=== PATIENT | female | born 1995 | race Caucasian/White ===

== ENCOUNTER → 2017-11-09 | Outpatient (CLI) | payer OTHER ==
[~2017-11-09] MED LIST: ZOFR4TAB3 PO
== END ==
LOC: HPND 07:54
PROVIDERS: ATTEND Obstetrics & Gynecology
DX: Z36.82 Encounter for antenatal screening for nuchal translucency (principal)
CPT/HCPCS: 76805

== ENCOUNTER 2018-03-18 02:43 | Inpatient (IN) ==
--- NOTE | 2018-03-18 02:52 | ED ---
History of Present Illness Primary Care Physician: UNKNOWN History of Present Illness: CC: leaking of fluid, contractions 22 year-old , IUP at 37.4 care complicated by: gestational HTN The patient presents complaining of the leaking of fluid that started at 1:30 am. She reports she had a large gush of clear fluid and has continued to leak since. She reports she is having mild and irregular contractions. She reports good movement. She denies any vaginal bleeding. She has no other obstetrical complaints at this time. 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: , full term x1, denies STDs PSH: denies FH: HTN, thyroid problems SH: Denies Review of Systems All other systems reviewed negative except as stated in HPI PMFSH - Tobacco History Second Hand Smoke Exposure: No Smoking Status: Never smoker - Alcohol History How Often Do You Have a Drink Containing Alcohol: Never - Substance Use History Substance History: No History of Abuse Medications and Allergies Allergies Allergy/AdvReac Type Severity Reaction Status Date / Time No Known Allergies Allergy Uncoded 02/13/16 09:25 Home Medications Medication Instructions Recorded Confirmed Type prenat.vits,brent,zfv-yagr-ysere 1 tab PO DAILY 03/18/18 03/18/18 History [ Vitamin] Exam Narrative: GENERAL: Well-nourished, well-developed patient. SKIN: Warm and dry. HEAD: Normocephalic and atraumatic. EYES: No scleral icterus. No injection or drainage. ENT: No nasal drainage noted. Mucous membranes pink. Airway patent. NECK: Supple, trachea midline. No JVD. CARDIOVASCULAR: Regular rate and rhythm without murmurs, gallops, or rubs. RESPIRATORY: Breath sounds equal bilaterally. No accessory muscle use. BREASTS: Deferred ABDOMEN/GI: Abdomen soft, non-tender, bowel sounds present, no rebound, no guarding Gravid GENITOURINARY: External Genitalia: intact and normal in appearance. Normal BUS. No cervical or vaginal masses noted. No cervical or vaginal masses noted SVE 3-4/ 60/-2/posterior, Amnisure positive and grossly ROM. FHT's: heart tones are in the 150s. Appropriate EXTREMITIES: No cyanosis or edema. BACK: Nontender without obvious deformity. NEUROLOGICAL/psychiatric: Awake and alert. Motor and sensory grossly within normal limits. Grossly normal muscle strength in all muscle groups. Normal speech. Grossly normal range of motion, normal memory/affect NST report: Indications IUP at 37 weeks, leaking of fluid, contractions heart tones in the 120s with moderate long-term variability, good accelerations, no decelerations noted this reactive NST and category 1 heart rate tracing Follow-up: Continue monitoring Final diagnosis IUP at 37 weeks, PROM/SROM with early labor Assessment and Plan - Plan Assessment/Plan: 1. IUP at 37.4 2. PROM: Patient with grossly ruptured membranes and leaking amniotic fluid. Will admit to Dr. Mata. Dr. Mata notified. 3. wellbeing: Reassuring testing with reactive NST and category 1 heart rate tracing 4. Gestational hypertension: Blood pressure stable today 5. GBS negative Discharge Plan - Physicians Team ED Provider: Yenny Renteria Primary Care Provider: UNKNOWN, - Rxs /Orders / Referrals /Forms Prescriptions: No Action prenat.vits,brent,[id number] [ Vitamin] Tablet 1 tab PO DAILY - Discharge Instructions Print Language: Italian
[2018-03-18] MEDS ORDERED: fentaNYL Citrate Inj 100 MCG/2 ML Ampul IV.PUSH PRN ×2 (04:49)
[2018-03-18] MEDS ORDERED: Sodium Chlor 0.9% Inj 500 ML IV.SIG PRN (04:49)
[2018-03-18] MEDS ORDERED: Sod Chloride 0.9% Inj 1,000 ML IV.CONT PRN (04:49)
[2018-03-18] MEDS ORDERED: Oxytocin 30 Units/500ml Premix 30 UNITS/500 ML BAG IV.SIG ONE (04:49)
[2018-03-18 04:56] LABS: Baso % (Auto) 0.5 % (0.0-2.0); Eos # (Auto) 0.1 th/mm3 (0.0-0.4); Hematocrit 34.8 % (35.0-46.0); Hemoglobin 11.7 gm/dL (11.6-15.3); Lymph # (Auto) 1.7 th/mm3 (1.0-4.8); Mean Corpuscular HGB Conc 33.7 % (32.0-36.0); Mean Corpuscular Hemoglobin 29.2 pg (27.0-34.0); Mean Corpuscular Volume 86.6 fL (80.0-100.0); Mean Platelet Volume 10.6 fL (7.0-11.0); Mono # (Auto) 0.4 th/mm3 (0.0-0.9); Mono % (Auto) 6.7 % (0.0-8.0); Neut # (Auto) 4.1 th/mm3 (1.8-7.7); Neut % (Auto) 64.8 % (16.0-70.0); Platelet Count 191 th/mm3 (150-450); Red Blood Count 4.02 mil/mm3 (4.00-5.30); Red Cell Distribution Width 14.7 % (11.6-17.2); White Blood Count 6.3 th/mm3 (4.0-11.0)
[2018-03-18] MEDS ORDERED: Citric Acid/Sodium Citrate Liq 30 ML UDC PO SCH (05:00)
[2018-03-18 05:15] LABS: Alanine Aminotransferase 12 U/L (10-53); Anion Gap 11 meq/L (5-15); Aspartate Aminotransferase 11 U/L (15-37); Blood Urea Nitrogen 10 mg/dL (7-18); Calcium 8.8 mg/dL (8.5-10.1); Carbon Dioxide 20.5 meq/L (21.0-32.0); Chloride 109 meq/L (98-107); Glomerular Filtration Rate Greater Than 89 mL/min (>89); Glucose,Random 75 mg/dL (74-106); Potassium 3.8 meq/L (3.5-5.1); Sodium 140 meq/L (136-145)
[2018-03-18 05:17] LABS: Albumin 2.7 g/dL (3.4-5.0); Alkaline Phosphatase 137 U/L (45-117); Total Protein 6.4 g/dL (6.4-8.2)
[2018-03-18] MEDS ORDERED: Oxytocin 30 Units/500ml Premix 30 UNITS/500 ML BAG IV.CONT PRN (05:19)
[2018-03-18 05:22] LABS: Bilirubin,Urine Negative (Negative); Clarity,Urine Clear (Clear); Color,Urine Yellow (Yellw/Straw); Glucose,Urine (UA) Negative (Negative); Hyaline Casts,Urine 1 /lpf (0-3); Leukocyte Esterase,Urine Negative (Negative); Mucus,Urine Few /lpf (Occasional); Nitrite,Urine Negative (Negative); Specific Gravity,Urine 1.018 (1.002-1.035); Squamous Epithelial Cell,Urine <1 /hpf (0-5)
[2018-03-18 05:28] LABS: Amphetamine Urine With Conf Neg (Neg); Benzodiazepine Urine With Conf Neg (Neg)
[2018-03-18] MEDS ORDERED: fentaNYL 2MCG-Bupiv 0.125% Epi 150 ML EPIDURAL ONE (08:02)
[2018-03-18] MEDS ORDERED: Lidocaine PF 1% Inj 5 ML Vial ONE (09:28)
[2018-03-18] MEDS ORDERED: fentaNYL Citrate Inj 100 MCG/2 ML Ampul EPIDURAL ONE (11:00)
[2018-03-18] MEDS ORDERED: fentaNYL 2MCG-Bupiv 0.125% Epi 150 ML EPIDURAL PRN (11:00)
[2018-03-18] MEDS ORDERED: Benzocaine 20% Top Spray 60 ML Can TOPICAL PRN (12:06)
[2018-03-18] MEDS ORDERED: Naloxone Inj 0.4 MG/ML Vial IV.PUSH PRN (12:06)
[2018-03-18] MEDS ORDERED: Acetaminophen 325 MG Tablet PO PRN (12:06)
[2018-03-18] MEDS ORDERED: Witch Hazel 50%/Glyderin 12.5% 40 Pad Jar RECTAL PRN (12:06)
[2018-03-18] MEDS ORDERED: Bisacodyl 10 MG Supp RECTAL PRN (12:06)
--- NOTE | 2018-03-18 12:14 | P.OBDELI ---
Weeks Gestation: 33 Patient Started Active Labor: Yes Active Labor Start Date: 03/18/18 Active Labor Start Time: 09:00 Medical Induction of Labor: No Artificial Rupture of Membrane: No Anesthesia: Epidural Episiotomy: none Vaginal Delivery: Normal Presentation: Occiput anterior Nuchal Cord: x1 Delayed Cord Clamping (45 sec): Yes Placenta: Spontaneous delivery, Intact, 3 vessel cord Laceration: 1 deg Repair: Chromic running : Male, Single
[2018-03-18] MEDS ORDERED: Oxytocin 30 Units/500ml Premix 30 UNITS/500 ML BAG IV.CONT SCH (12:15)
--- NOTE | 2018-03-18 12:19 | P.HPOB ---
History of Present Illness Primary Care Physician: UNKNOWN History of Present Illness: 22 yo with SROM at 37 weeks in labor Weeks Gestation:: 37 Para: 1 : 2 - Inpatient Certification I certify that the inpatient services were ordered in accordance with Medicare regulations governing the order. This includes certification that hospital inpatient services are reasonable and necessary and in the case of services not specified as inpatient-only under 42 CFR 419.22(n), that they are appropriately provided as inpatient services in accordance to with the 2-midnight benchmark under 43 CFR 412.3(e) Estimated Total Length of Stay (Days): 3 Plans for Post Hospital Care: Home Review of Systems All other systems reviewed negative except as stated in HPI PMFSH - History History Provided By: Patient - Medical / Surgical Hx Neg / Unobtainable Medical Problems Denied: Yes (vonwillebrands worked up and not clinically relevant) Surgical History: No Previous Surgery - Tobacco History Second Hand Smoke Exposure: No Smoking Status: Never smoker - Alcohol History How Often Do You Have a Drink Containing Alcohol: Never - Substance Use History Substance History: No History of Abuse - Travel History Recent Travel in the [place] Within the Last 8 Weeks: No Recent Travel Out of the Country Within the Last 8 Weeks: No Medications and Allergies Active Medications: Active Medications Acetaminophen (Tylenol) 650 mg PO Q4H PRN PRN Reason: PAIN SCALE 1 TO 2 Al Hydroxide/Mg Hydroxide (Milk Of [place]le Lihenr[place]) 30 ml PO Q12H PRN PRN Reason: Mild Constipation Benzocaine (Americaine 20% [place]) 1 spray TOPICAL Q4H PRN PRN Reason: For Perineum Discomfort Bisacodyl (Dulcolax Supp) 10 mg RECTAL DAILY PRN PRN Reason: SEVERE CONSITIPATION Diphtheria/Pertussis/Tetanus Vacc (Boostrix Vaccine Inj) 0.5 ml IM .ONCE ONE Stop: 03/18/18 16:01 Ephedrine Sulfate (Ephedrine/Ns Syringe) 10 mg IV.PUSH UNSCH PRN PRN Reason: SEE LABEL COMMENTS Stop: 03/19/18 10:39 Oxytocin (Pitocin 30 Units/Ns 500 Ml Premix) 30 units in 500 mls @ 2 mls/hr IV.CONT TITRATE PRN; Protocol PRN Reason: For induction of labor Last Admin: 03/18/18 05:49 Dose: 2 milliunit/min, 2 mls/hr Fentanyl/Bupivacaine/Sodium Chlor (Fentanyl 2 Mcg-Bupiv 0.125% Epi) 150 mls @ 12 mls/hr EPIDURAL UNSCH PRN PRN Reason: for Labor Pain Oxytocin (Pitocin 30 Units/Ns 500 Ml Premix) 30 units in 500 mls @ 100 mls/hr IV.CONT Q5H [facility] Stop: 03/18/18 17:14 Ibuprofen (Motrin) 800 mg PO Q8H PRN PRN Reason: For cramping Lactulose (Lactulose Liq) 30 ml PO DAILY PRN PRN Reason: SEVERE CONSITIPATION Measles/Mumps/Rubella Vaccine Live (M-M-R Ii Vaccine Inj) 0.5 ml SQ .ONCE ONE Stop: 03/18/18 16:01 Miscellaneous Information (Misc Information) 1 each OTHER UNSCH PRN PRN Reason: SEE LABEL COMMENTS Stop: 03/19/18 10:39 Miscellaneous Information (Misc Information) 1 each OTHER UNSCH PRN PRN Reason: SEE LABEL COMMENTS Stop: 03/19/18 10:39 Naloxone HCl (Narcan Inj) 0.1 mg IV.PUSH Q2M PRN PRN Reason: for opiate reversal Ondansetron HCl (Zofran Odt) 4 mg PO Q6H PRN PRN Reason: NAUSEA OR VOMITING Oxycodone/Acetaminophen (Percocet 5/325 Mg) 1 tab PO Q4H PRN PRN Reason: PAIN SCALE 3 TO 5 Oxycodone/Acetaminophen (Percocet 5/325 Mg) 2 tab PO Q4H PRN PRN Reason: PAIN SCALE 6 TO 10 Senna/Docusate Sodium (Josette-Colace) 1 tab PO BID [facility] Sennosides (Senokot) 17.2 mg PO Q12H PRN PRN Reason: Moderate Constipation Sodium Chloride (Ns Flush) 2 ml IV.FLUSH BID [facility] Sodium Chloride (Ns Flush) 2 ml IV.FLUSH PRN PRN PRN Reason: FLUSH AFTER USING IV ACCESS Witch Nat/Glycerin (Tucks Pads) 1 applicatio RECTAL QID PRN PRN Reason: HEMORRHOIDS Zolpidem Tartrate (Ambien) 5 mg PO HS PRN PRN Reason: SLEEP Allergies Allergy/AdvReac Type Severity Reaction Status Date / Time No Known Allergies Allergy Verified 03/18/18 10:38 Home Medications Medication Instructions Recorded Confirmed Type prenat.vits,brent,tam-fnki-[id number] 1 tab PO DAILY 03/18/18 03/18/18 History [ Vitamin] Exam Vital signs: Vital Signs 03/18/18 03:07 03/18/18 03:09 03/18/18 03:10 Temperature 98.6 F Pulse Rate 84 Respiratory Rate 18 Blood Pressure 139/89 03/18/18 03:54 03/18/18 03:58 03/18/18 05:07 Temperature 97.8 F Pulse Rate 86 65 Respiratory Rate 20 16 Blood Pressure 140/93 H 133/76 03/18/18 05:53 03/18/18 06:00 03/18/18 06:30 Temperature Pulse Rate 82 72 74 Respiratory Rate 18 Blood Pressure 112/69 125/80 113/70 03/18/18 06:32 03/18/18 07:01 03/18/18 07:05 Temperature 98.1 F Pulse Rate 68 Respiratory Rate 16 18 Blood Pressure 149/88 H 03/18/18 07:45 03/18/18 08:31 03/18/18 08:45 Temperature 98.0 F Pulse Rate 63 72 Respiratory Rate 18 Blood Pressure 136/85 144/86 H 03/18/18 09:00 03/18/18 09:22 03/18/18 09:49 Temperature Pulse Rate 74 85 83 Respiratory Rate Blood Pressure 145/90 H 140/92 H 148/99 H 03/18/18 09:50 03/18/18 09:55 03/18/18 10:00 Temperature 98.1 F Pulse Rate 84 80 76 Respiratory Rate Blood Pressure 150/80 H 03/18/18 10:05 03/18/18 10:25 03/18/18 10:31 Temperature Pulse Rate 88 81 72 Respiratory Rate Blood Pressure 140/89 145/80 H 03/18/18 10:41 03/18/18 10:55 03/18/18 11:10 Temperature Pulse Rate 73 78 81 Respiratory Rate Blood Pressure 141/76 H 143/75 H 126/78 03/18/18 11:25 03/18/18 12:10 Temperature 98.0 F Pulse Rate 80 83 Respiratory Rate 16 Blood Pressure 141/82 H 168/84 H Intake & Output 03/17/18 03/18/18 03/18/18 18:59 06:59 18:59 Intake Total 1000 / 1000 Balance 1000 / 1000 Weight 104 kg 104 kg Intake: IV 1000 / 1000 LR 1000 mL Inj 1,000 ML @ 125 1000 / 1000 mls/hr IV.CONT .Q8H [facility] Rx#: [id number] Other: Weight On Admission 104 kg - Constitutional no acute distress - Routine HEENT Exam Head: Present: normocephalic - Routine Neck Exam Present: full ROM - Routine Respiratory Exam Present: CTA bilaterally - Routine Cardiovascular Exam Present: RRR - Routine Abdominal Exam Present: soft, normoactive bowel sounds - Routine Extremities Exam Present: full ROM - Routine Skin Exam Present: intact - Routine Neurological Exam Present: alert, oriented X3 - Additional findings Additional findings: cervis 3-4 cm with SROM clear Results - Labs CBC & Chem 7: 03/18/18 03:45 03/18/18 03:45 Labs: Laboratory Results - last 24 hr 03/18/18 03/18/18 03/18/18 03:15 03:15 03:45 WBC 6.3 RBC 4.02 Hgb 11.7 Hct 34.8 L MCV 86.6 MCH 29.2 MCHC 33.7 RDW 14.7 Plt Count 191 MPV 10.6 Neut % (Auto) 64.8 Lymph % (Auto) 27.0 Kaufman % (Auto) 6.7 Eos % (Auto) 1.0 Baso % (Auto) 0.5 Neut # (Auto) 4.1 Lymph # (Auto) 1.7 [place]man # (Auto) 0.4 Eos # (Auto) 0.1 Baso # (Auto) 0.0 WBC Differential . Differential Comment Auto diff final Sodium Potassium Chloride Carbon Dioxide Anion Gap BUN Creatinine Estimated GFR Random Glucose Calcium Total Bilirubin AST ALT Alkaline Phosphatase Total Protein Albumin Urine Color Yellow Urine Clarity Clear Urine pH 6.0 Ur Specific [place] 1.018 Urine Protein 30 H Urine Glucose (UA) Negative Urine Ketones Negative Urine Occult Blood Negative Urine Nitrate Negative Urine Bilirubin Negative Urine Urobilinogen Less than 2 Ur Leukocyte Esterase Negative Urine RBC 1 Urine WBC 2 Ur Squamous Epith Cells <1 Hyaline Casts 1 Urine Mucus Few H Micro UA Comment Culture not ind Urine Culture Comments Culture not ind Urine Opiates Screen Neg Ur Barbiturates Screen Neg Ur Amphetamine Screen Neg U Benzodiazepines Scrn Neg Urine Cocaine Screen Neg U Cannabinoids Screen Neg Blood Type Blood Type Recheck 03/18/18 03/18/18 03:45 03:45 WBC RBC Hgb Hct MCV MCH MCHC RDW Plt Count MPV Neut % (Auto) Lymph % (Auto) [place] % (Auto) Eos % (Auto) Baso % (Auto) Neut # (Auto) Lymph # (Auto) [place] # (Auto) Eos # (Auto) Baso # (Auto) WBC Differential Differential Comment Sodium 140 Potassium 3.8 Chloride 109 H Carbon Dioxide 20.5 L Anion Gap 11 BUN 10 Creatinine 0.61 Estimated GFR Greater than 89 Random Glucose 75 Calcium 8.8 Total Bilirubin 0.2 AST 11 L ALT 12 Alkaline Phosphatase 137 H Total Protein 6.4 Albumin 2.7 L Urine Color Urine Clarity Urine pH Ur Specific [place] Urine Protein Urine Glucose (UA) Urine Ketones Urine Occult Blood Urine Nitrate Urine Bilirubin Urine Urobilinogen Ur Leukocyte Esterase Urine RBC Urine WBC Ur Squamous Epith Cells Hyaline Casts Urine Mucus Micro UA Comment Urine Culture Comments Urine Opiates Screen Ur Barbiturates Screen Ur Amphetamine Screen U Benzodiazepines Scrn Urine Cocaine Screen U Cannabinoids Screen Blood Type O Positive Blood Type Recheck Required Group B Strep: Negative Caprini VTE Risk Assessment Caprini VTE Risk Assessment: No/Low Risk (score <= 1) Caprini Risk Assessment Model: Point Value = 1 Point Value = 2 Point Value = 3 Point Value = 5 Age 41-60 Minor surgery BMI > 25 kg/m2 Swollen legs Varicose veins or History of unexplained or recurrent spontaneous Oral contraceptives or hormone replacement Sepsis (< 1 month) Serious lung disease, including pneumonia (< 1 month) Abnormal pulmonary function Acute myocardial infarction Congestive heart failure (< 1 month) History of inflammatory bowel disease Medical patient at bed rest Age 61-74 Arthroscopic surgery Major open surgery (> 45 min) Laparoscopic surgery (> 45 min) Malignancy Confined to bed (> 72 hours) Immobilizing plaster cast Central venous access Age >= 75 History of VTE Family history of VTE Factor V Leiden Prothrombin [id number] Lupus anticoagulant Anticardiolipin antibodies Elevated serum homocysteine Heparin-induced thrombocytopenia Other congenital or acquired thrombophilia Stroke (< 1 month) Elective arthroplasty Hip, pelvis, or leg fracture Acute spinal cord injury (< 1 month) Prophylaxis Regimen: Total Risk Factor Score Risk Level Prophylaxis Regimen 0-1 Low Early ambulation 2 Moderate Order ONE of the following: *Sequential Compression Device (SCD) *Heparin 5000 units SQ BID 3-4 Higher Order ONE of the following medications: *Heparin 5000 units SQ TID *Enoxaparin/Lovenox 40 mg SQ daily (WT < 150 kg, CrCl > 30 mL/min) *Enoxaparin/Lovenox 30 mg SQ daily (WT < 150 kg, CrCl > 10-29 mL/min) *Enoxaparin/Lovenox 30 mg SQ BID (WT < 150 kg, CrCl > 30 mL/min) AND/OR *Sequential Compression Device (SCD) 5 or more Highest Order ONE of the following medications: *Heparin 5000 units SQ TID (Preferred with Epidurals) *Enoxaparin/Lovenox 40 mg SQ daily (WT < 150 kg, CrCl > 30 mL/min) *Enoxaparin/Lovenox 30 mg SQ daily (WT < 150 kg, CrCl > 10-29 mL/min) *Enoxaparin/Lovenox 30 mg SQ BID (WT < 150 kg, CrCl > 30 mL/min) AND *Sequential Compression Device (SCD) Assessment and Plan - Diagnosis (1) 37 weeks gestation of Code(s): Z3A.37 - 37 weeks gestation of Status: Acute - Plan expectant management
[2018-03-18 14:10] VITALS: RESP 18
[2018-03-18] MEDS ORDERED: Measles/Mumps/Rubella Vaccine Inj 0.5 ML Vial SQ ONE (16:00)
[2018-03-18] MEDS ORDERED: Diphtheria/Tetanus/Pertussis Vaccine Inj 0.5 ML Syringe IM ONE (16:00)
[2018-03-18] MEDS: Ibuprofen 400 MG Tablet PO PRN (17:09)
[2018-03-18] MEDS ORDERED: Zolpidem Tartrate 5 MG Tablet PO PRN (21:00)
[2018-03-18] MEDS: Senna/Docusate Sodium 8.6/50 MG Tablet PO SCH (21:13)
[2018-03-19] MEDS: Ibuprofen 400 MG Tablet PO PRN ×2 (01:07→08:20)
[2018-03-19 08:17] VITALS: BP 117/74; PULSE 63; TEMP 98.3
[2018-03-19] MEDS: Senna/Docusate Sodium 8.6/50 MG Tablet PO SCH (08:21)
--- NOTE | 2018-03-19 08:48 | P.PNOB ---
Subjective Post day: 1 Interval history: doing well circ in office Objective Vital Signs/I&O: Vital Signs 03/18/18 09:00 03/18/18 09:22 03/18/18 09:49 Temperature Pulse Rate 74 85 83 Respiratory Rate Blood Pressure 145/90 H 140/92 H 148/99 H 03/18/18 09:50 03/18/18 09:55 03/18/18 10:00 Temperature 98.1 F Pulse Rate 84 80 76 Respiratory Rate Blood Pressure 150/80 H 03/18/18 10:05 03/18/18 10:25 03/18/18 10:31 Temperature Pulse Rate 88 81 72 Respiratory Rate Blood Pressure 140/89 145/80 H 03/18/18 10:41 03/18/18 10:55 03/18/18 11:10 Temperature Pulse Rate 73 78 81 Respiratory Rate Blood Pressure 141/76 H 143/75 H 126/78 03/18/18 11:25 03/18/18 12:10 03/18/18 12:16 Temperature 98.0 F Pulse Rate 80 83 244 H Respiratory Rate 16 Blood Pressure 141/82 H 168/84 H 137/76 03/18/18 12:30 03/18/18 12:46 03/18/18 13:00 Temperature Pulse Rate 82 84 98 H Respiratory Rate Blood Pressure 141/87 H 121/86 120/77 03/18/18 14:09 03/18/18 20:00 03/19/18 08:00 Temperature 98.0 F 98.0 F 98.3 F Pulse Rate 89 62 63 Respiratory Rate 18 18 18 Blood Pressure 136/77 133/83 117/74 Intake & Output 03/18/18 03/19/18 03/19/18 18:59 06:59 18:59 Intake Total 1000 / 1000 Balance 1000 / 1000 Weight 104 kg Intake: IV 1000 / 1000 LR 1000 mL Inj 1,000 ML @ 125 1000 / 1000 mls/hr IV.CONT .Q8H [facility] Rx#: [id number] Other: Weight On Admission 104 kg Result Diagrams: 03/18/18 03:45 03/18/18 03:45 Objective Remarks: GENERAL: Well-nourished, well-developed patient. ABDOMEN/GI: Abdomen soft, non-tender. Fundus: Firm, non-tender at umbilicus. GENITOURINARY: Light to moderate bleeding. EXTREMITIES: No cyanosis or edema, non-tender, without signs of DVT. Medications and IVs: Active Medications Acetaminophen (Tylenol) 650 mg PO Q4H PRN PRN Reason: PAIN SCALE 1 TO 2 Al Hydroxide/Mg Hydroxide (Milk Of Magnesia Liq) 30 ml PO Q12H PRN PRN Reason: Mild Constipation Benzocaine (Americaine 20% Top [place]) 1 spray TOPICAL Q4H PRN PRN Reason: For Perineum Discomfort Bisacodyl (Dulcolax Supp) 10 mg RECTAL DAILY PRN PRN Reason: SEVERE CONSITIPATION Ephedrine Sulfate (Ephedrine/Ns Syringe) 10 mg IV.PUSH UNSCH PRN PRN Reason: SEE LABEL COMMENTS Stop: 03/19/18 10:39 Fentanyl/Bupivacaine/Sodium Chlor (Fentanyl 2 Mcg-Bupiv 0.125% Epi) 150 mls @ 12 mls/hr EPIDURAL UNSCH PRN PRN Reason: for Labor Pain Ibuprofen (Motrin) 800 mg PO Q8H PRN PRN Reason: For cramping Last Admin: 03/19/18 08:20 Dose: 800 mg Lactulose (Lactulose Liq) 30 ml PO DAILY PRN PRN Reason: SEVERE CONSITIPATION Miscellaneous Information (Misc Information) 1 each OTHER UNSCH PRN PRN Reason: SEE LABEL COMMENTS Stop: 03/19/18 10:39 Miscellaneous Information (Misc Information) 1 each OTHER UNSCH PRN PRN Reason: SEE LABEL COMMENTS Stop: 03/19/18 10:39 Naloxone HCl (Narcan Inj) 0.1 mg IV.PUSH Q2M PRN PRN Reason: for opiate reversal Ondansetron HCl (Zofran Odt) 4 mg PO Q6H PRN PRN Reason: NAUSEA OR VOMITING Oxycodone/Acetaminophen (Percocet 5/325 Mg) 1 tab PO Q4H PRN PRN Reason: PAIN SCALE 3 TO 5 Last Admin: 03/19/18 08:21 Dose: 1 tab Oxycodone/Acetaminophen (Percocet 5/325 Mg) 2 tab PO Q4H PRN PRN Reason: PAIN SCALE 6 TO 10 Senna/Docusate Sodium (Josette-Colace) 1 tab PO BID [facility] Last Admin: 03/19/18 08:21 Dose: 1 tab Sennosides (Senokot) 17.2 mg PO Q12H PRN PRN Reason: Moderate Constipation Sodium Chloride (Ns Flush) 2 ml IV.FLUSH BID [facility] Sodium Chloride (Ns Flush) 2 ml IV.FLUSH PRN PRN PRN Reason: FLUSH AFTER USING IV ACCESS Witch Nat/Glycerin (Tucks Pads) 1 applicatio RECTAL QID PRN PRN Reason: HEMORRHOIDS Zolpidem Tartrate (Ambien) 5 mg PO HS PRN PRN Reason: SLEEP Assessment and Plan - Diagnosis (1) 37 weeks gestation of Code(s): Z3A.37 - 37 weeks gestation of Status: Acute (2) Spontaneous vaginal delivery Code(s): O80 - Encounter for full-term uncomplicated delivery Status: Acute - Plan DC home today stable and requesting DC
--- NOTE | 2018-03-19 08:53 | P.DS ---
Date of admission: 03/18/18 03:14 Primary care physician: UNKNOWN Brief History from admission: 22 yo with SROM at 37 weeks in labor, same day DS: Diagnosis - Discharge Diagnosis (1) 37 weeks gestation of Status: Acute (2) Spontaneous vaginal delivery Status: Acute DS: Medications - Discharge Medications Prescriptions: oxycodone-acetaminophen 1 tab PO Q4H PRN #12 tab PRN Reason: Pain Scale 3 To 5 DS: Summary Hospital Course: and DC home ppd #1 - Time Spent with Patient Total time spent providing and/or coordinating discharge services: Less than 30 minutes Exam Vital signs: Vital Signs 03/18/18 09:00 03/18/18 09:22 03/18/18 09:49 Temperature Pulse Rate 74 85 83 Respiratory Rate Blood Pressure 145/90 H 140/92 H 148/99 H 03/18/18 09:50 03/18/18 09:55 03/18/18 10:00 Temperature 98.1 F Pulse Rate 84 80 76 Respiratory Rate Blood Pressure 150/80 H 03/18/18 10:05 03/18/18 10:25 03/18/18 10:31 Temperature Pulse Rate 88 81 72 Respiratory Rate Blood Pressure 140/89 145/80 H 03/18/18 10:41 03/18/18 10:55 03/18/18 11:10 Temperature Pulse Rate 73 78 81 Respiratory Rate Blood Pressure 141/76 H 143/75 H 126/78 03/18/18 11:25 03/18/18 12:10 03/18/18 12:16 Temperature 98.0 F Pulse Rate 80 83 244 H Respiratory Rate 16 Blood Pressure 141/82 H 168/84 H 137/76 03/18/18 12:30 03/18/18 12:46 03/18/18 13:00 Temperature Pulse Rate 82 84 98 H Respiratory Rate Blood Pressure 141/87 H 121/86 120/77 03/18/18 14:09 03/18/18 20:00 03/19/18 08:00 Temperature 98.0 F 98.0 F 98.3 F Pulse Rate 89 62 63 Respiratory Rate 18 18 18 Blood Pressure 136/77 133/83 117/74 Intake & Output 03/18/18 03/19/18 03/19/18 18:59 06:59 18:59 Intake Total 1000 / 1000 Balance 1000 / 1000 Weight 104 kg Intake: IV 1000 / 1000 LR 1000 mL Inj 1,000 ML @ 125 1000 / 1000 mls/hr IV.CONT .Q8H [facility] Rx#: [id number] Other: Weight On Admission 104 kg - Constitutional no acute distress Results Procedures completed during hospitalization: Discharge Plan - Discharge Disposition Patient Disposition: 01 Discharge Home - Discharge Condition Condition: Good - Discharge Order Discharge Orders: Discharge Order (Routine); Ordered 03/19/18 Ordered By: Bernardino Rodriguez - Physicians Team Primary Care Provider: UNKNOWN, Attending Provider: Bernardino Rodriguez
== END 2018-03-19 15:00 | disposition home or self-care (01) ==
LOC: HOBED 02:43 → H2E 03:14 → H1EA 14:06
PROVIDERS: ADMIT Obstetrics & Gynecology; ATTEND Obstetrics & Gynecology